=== PATIENT | male | born 1955 | race African-American/Black ===

== ENCOUNTER 2023-03-28 18:11 | Emergency (ER) | payer MEDICARE, MEDICAID ==
[~2023-03-28] VITALS: Ht 180.3 cm; Wt 86.4 kg
[2023-03-28] MEDS ORDERED: GABA-1181 PO (18:28)
[2023-03-28] MEDS ORDERED: ASPI81TA87 PO (18:28)
[2023-03-28] MEDS ORDERED: DAPA10TA PO (18:28)
[2023-03-28] MEDS ORDERED: LEVE500T8 PO (18:28)
[2023-03-28] MEDS ORDERED: ROSU20TA73 PO (18:28)
[2023-03-28] MEDS ORDERED: FOLIC ACID PO (18:28)
[2023-03-28] MEDS ORDERED: FURO-151 PO (18:28)
[2023-03-28] MEDS ORDERED: HYDR200T83 PO (18:28)
[2023-03-28] MEDS ORDERED: BACL10TA PO (18:28)
[2023-03-28] MEDS ORDERED: LOSA-382 PO (18:28)
[2023-03-28] MEDS ORDERED: AMLO5TAB66 PO (18:28)
[2023-03-28] MEDS ORDERED: METO5TAB95 PO (18:28)
[2023-03-28 19:10] LABS: BASOPHILS % (AUTO) 1.5 % (0.0-2.0); EOSINOPHILS % (AUTO) 9.8 % (1.0-6.0); HEMATOCRIT 38.8 % (41-53); HEMOGLOBIN 12.8 g/dL (13.5-17.5); LYMPHOCYTES # (AUTO) 1.2 K/uL (1.0-4.8); LYMPHOCYTES % (AUTO) 29.4 % (22.0-44.0); MEAN CORPUSCULAR HEMOGLOBIN 28.5 pg (26.0-34.0); MEAN CORPUSCULAR HGB CONC 32.9 G/dL (31.0-37.0); MEAN CORPUSCULAR VOLUME 87 fL (80-100); MONOCYTES # (AUTO) 0.6 K/uL (0.1-1.0); MONOCYTES % (AUTO) 13.6 % (2.0-9.0); NEUTROPHILS # (AUTO) 1.9 K/uL (1.8-7.7); NEUTROPHILS % (AUTO) 45.7 % (40.0-70.0); PLATELET COUNT (AUTO) 217 K/uL (150-450); RED BLOOD CELL COUNT(AUTO) 4.48 MIL/uL (4.50-5.90); RED CELL DISTRIBUTION WIDTH 13.5 % (11.5-14.5)
[2023-03-28 19:17] LABS: CALCIUM, TOTAL 9.3 mg/dL (8.8-10.5); CREATININE 3.91 mg/dL (0.60-1.30)
[2023-03-28 19:40] VITALS: BP 130/72
== END 2023-03-28 21:51 | disposition home or self-care (01) ==
LOC: EMS 18:12
DX: G40.909 Epilepsy, unspecified, not intractable, without status epilepticus (principal); G25.2 Other specified forms of tremor; N28.9 Disorder of kidney and ureter, unspecified; E11.9 Type 2 diabetes mellitus without complications; Z98.890 Other specified postprocedural states; Z88.2 Allergy status to sulfonamides; Z88.8 Allergy status to other drugs, medicaments and biological substances
CPT/HCPCS: 70450; 80048; 82962; 85025; 93005; 99285